=== PATIENT | male | born 1960 | race African-American/Black ===

== ENCOUNTER 2016-09-24 06:36 | Emergency (ER) | payer OTHER ==
[2016-09-24 07:10] VITALS: BP 155/87; PULSE 75; TEMP 98.7; BMI 33.7
[2016-09-24] MEDS ORDERED: DIPHTH,PERTUSS(ACELL),TET VAC 0.5 ML VIAL IM ONE (07:39)
[2016-09-24] MEDS ORDERED: ACETAMINOPHEN 500 MG TABLET (FP) PO ONE (07:39)
[2016-09-24] MEDS ORDERED: ACETAMINOPHEN 325 MG TABLET (FP) ONE (07:43)
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
== END 2016-09-24 08:02 | disposition home or self-care (01) ==
LOC: JER 06:36
PROC: 0HQFXZZ Repair Right Hand Skin, External Approach (ICD-10-PCS; principal; 2016-09-24)
PROC: 3E0234Z Introduction of Serum, Toxoid and Vaccine into Muscle, Percutaneous Approach (ICD-10-PCS; 2016-09-24)
DX: S61.312A Laceration without foreign body of right middle finger with damage to nail, initial encounter (principal); W45.8XXA Other foreign body or object entering through skin, initial encounter; Y93.89 Activity, other specified; Y92.9 Unspecified place or not applicable; I10 Essential (primary) hypertension
CPT/HCPCS: 99281-25

== ENCOUNTER 2017-12-14 18:10 | Emergency (ER) | payer OTHER ==
[2017-12-14 19:03] VITALS: BP 139/77; PULSE 78; TEMP 97.9; BMI 33.0
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
[2017-12-14 19:22] LABS: BASO % 0.7 % (0-2.0); EOS % 3.8 % (0-4.5); HEMATOCRIT 42.4 % (35.4-49); HEMOGLOBIN 14.3 GM/dL (11.7-16.9); LYMPH % 39.1 % (8-40); MCH 28.8 pg (25.7-33.7); MCHC 33.7 g/dl (32.0-35.9); MEAN CELL VOLUME 85.5 fl (80-96); MEAN PLT VOLUME 7.4 fl (7.5-11.1); MONO % 11.3 % (3.8-10.2); NEUT % 45.1 % (42.8-82.8); PLATELET COUNT 322 K/MM3 (134-434); RBC 4.96 M/mm3 (4.00-5.60); RDW 13.6 % (11.9-15.9); WHITE BLOOD COUNT 5.8 K/mm3 (4.0-10.0)
[2017-12-14 19:50] LABS: ANION GAP 6 (8-16); BILIRUBIN,TOTAL 0.5 mg/dL (0.2-1.0); BLOOD UREA NITROGEN 14 mg/dL (7-18); CALCIUM 9.4 mg/dL (8.5-10.1); CHLORIDE 105 mmol/L (98-107); CO2 29 mmol/L (21-32); CREATININE 1.1 mg/dL (0.7-1.3); GLUCOSE,RANDOM 99 mg/dL (74-106); POTASSIUM 3.4 mmol/L (3.5-5.1); SGOT/AST 22 U/L (15-37); SGPT/ALT 34 U/L (12-78); SODIUM 140 mmol/L (136-145)
[2017-12-14 19:51] LABS: ALK PHOS 65 U/L (45-117)
[2017-12-16 06:07] LABS: HBsAG SCREEN Negative (Negative); HEPATITIS B CORE ANTIBODY Negative (Negative)
== END 2017-12-14 21:17 | disposition home or self-care (01) ==
LOC: JER 18:10
DX: Z77.21 Contact with and (suspected) exposure to potentially hazardous body fluids (principal); X58.XXXA Exposure to other specified factors, initial encounter; Y93.89 Activity, other specified; Y92.811 Bus as the place of occurrence of the external cause; Y99.0 Civilian activity done for income or pay
CPT/HCPCS: 36415; 80053; 85025; 86704; 87340; 87389; 99281-25

== ENCOUNTER 2018-01-28 23:16 | Emergency (ER) | payer OTHER ==
[2018-01-28 23:58] VITALS: BP 158/77; PULSE 70; BMI 33.0
[2018-01-29] MEDS ORDERED: KETOROLAC TROMETHAMINE 30 MG/1 ML VIAL IM ONE (00:52)
--- NOTE | 2018-01-29 00:52 | PDOC ---
History of Present Illness - General Chief Complaint: Pain, Acute Stated Complaint: PAIN ACUTE Time Seen by Provider: 01/28/18 23:58 History Source: Patient Exam Limitations: No Limitations - History of Present Illness Initial Comments: 01/29/18 00:44 57-year-old male with past medical history of lower back pain and hypertension who presents emergency Department with right lower back pain radiating to his right pelvic area. Patient states she's been taking muscle relaxers and pain relievers for the past week for his back pain which has been helping. We will this morning and had his current pain he did not take his medication. Currently rates the pain 9/10 and describes as a sharp pain. Patient states the pain worsens with flexion and extension of his spine. He also reports mild relief after passing flatus. He denies fevers, chills, hematuria, dysuria, rectal bleeding, nausea, vomiting, diarrhea. Past History - Past Medical History Allergies/Adverse Reactions: Allergies Allergy/AdvReac Type Severity Reaction Status Date / Time shellfish derived Allergy Verified 01/28/18 23:51 Home Medications: Ambulatory Orders Hydrochlorothiazide [Hctz -] 25 mg PO DAILY 09/24/16 Methocarbamol [Robaxin -] 1,500 mg PO Q8H #12 tablet 01/29/18 COPD: No HTN: Yes - Immunization History Immunization Up to Date: No - Suicide/Smoking/Psychosocial Hx Smoking Status: No Smoking History: Unknown if ever smoked Have you smoked in the past 12 months: No Number of Cigarettes Smoked Daily: 0 Hx Alcohol Use: No Drug/Substance Use Hx: No Substance Use Type: None Review of Systems - Review of Systems Able to Perform ROS?: Yes Is the patient limited Greek proficient: No Constitutional: No: Symptoms Reported HEENTM: No: Symptoms Reported Respiratory: No: Symptoms reported Cardiac (ROS): No: Symptoms Reported ABD/GI: Yes: See HPI : No: Symptoms Reported Musculoskeletal: Yes: See HPI Integumentary: No: Symptoms Reported Neurological: No: Symptoms reported *Physical Exam - Vital Signs Last Vital Signs Temp Pulse Resp BP Pulse Ox 70 20 158/77 99 01/28/18 23:56 01/28/18 23:56 01/28/18 23:56 01/28/18 23:56 - Physical Exam General Appearance: Yes: Appropriately Dressed. No: Apparent Distress HEENT: positive: Normal ENT Inspection Neck: positive: Trachea midline, Supple Respiratory/Chest: positive: Lungs Clear, Normal Breath Sounds. negative: Respiratory Distress, Accessory Muscle Use Cardiovascular: positive: Regular Rhythm, Regular Rate. negative: Murmur Gastrointestinal/Abdominal: positive: Normal Bowel Sounds, Soft. negative: Tender Musculoskeletal: positive: Normal Inspection. negative: CVA Tenderness, Vertebral Tenderness Extremity: positive: Normal Inspection Integumentary: positive: Normal Color, Dry, Warm Neurologic: positive: Alert, Normal Response Medical Decision Making - Medical Decision Making 01/29/18 00:47 A/P: 57-year-old male with history of hypertension and lower back pain presents today with lower back pain radiating to his right lower abdomen Abdomen soft nontender nondistended. No CVA tenderness No palpable muscle spasms in the lower back Able to perform straight leg raises without difficulty UA Toradol 01/29/18 04:35 Urinalysis is unremarkable. Patient unable to ambulate secondary to pain at this time. I will give the patient a dose of Valium and reassess 01/29/18 06:05 Pain is now tolerable after receiving both Toradol and Valium. I will discharge the patient home with a note for work. I discussed the physical exam findings, ancillary test results and final diagnoses with the patient. I answered all of the patient's questions. The patient was satisfied with the care received and felt comfortable with the discharge plan and treatment plan. The patient will call his doctor within 96 hours to arrange follow-up and will return to the Emergency Department with any new, persistent or worsening symptoms. *DC/Admit/Observation/Transfer Diagnosis at time of Disposition: Lower back pain Qualifiers: Chronicity: acute Back pain laterality: bilateral Sciatica presence: without sciatica Qualified Code(s): M54.5 - Low back pain - Discharge Dispostion Disposition: HOME Condition at time of disposition: Fair Decision to Admit order: No - Prescriptions Prescriptions: Methocarbamol [Robaxin -] 1,500 mg PO Q8H #12 tablet - Referrals Referrals: Donnie Fuller [Non Staff, Medical] - - Patient Instructions Printed Discharge Instructions: DI for Low Back Pain Additional Instructions: Take Tylenol or Motrin as needed for pain. Follow manufacturers instructions for appropriate dosage. Try not to walk or bear weight as much as possible for the next 3 days. Warm moist heat applied to your back may help alleviate pain. Return to emergency department for discoloration of the foot, numbness or tingling to the foot, worsening pain, or any other concerns. Thank you very much for choosing us to provide your emergent healthcare needs. - Post Discharge Activity Forms/Work/School Notes: Back to Work
[2018-01-29] MEDS ORDERED: KETOROLAC TROMETHAMINE 30 MG/1 ML VIAL ONE (01:26)
--- NOTE | 2018-01-29 04:01 | PDOC ---
*Physical Exam - Vital Signs Last Vital Signs Temp Pulse Resp BP Pulse Ox 70 20 158/77 99 01/28/18 23:56 01/28/18 23:56 01/28/18 23:56 01/28/18 23:56 ED Treatment Course - Medications Given in the ED: ED Medications Discontinued Medications Generic Name Dose Route Start Last Admin Trade Name Stuart PRN Reason Stop Dose Admin Ketorolac Tromethamine 30 mg 01/29/18 00:52 01/29/18 01:34 Toradol Injection - IM 01/29/18 00:53 30 mg ONCE ONE Administration Medical Decision Making - Medical Decision Making 01/29/18 04:01 agree with care from ORALIA Gonzales *DC/Admit/Observation/Transfer Diagnosis at time of Disposition: Lower back pain - Discharge Dispostion Disposition: HOME Condition at time of disposition: Fair - Prescriptions Prescriptions: Methocarbamol [Robaxin -] 1,500 mg PO Q8H #12 tablet - Referrals Referrals: Donnie Fuller [Non Staff, Medical] - - Patient Instructions Printed Discharge Instructions: DI for Low Back Pain Additional Instructions: Take Tylenol or Motrin as needed for pain. Follow manufacturers instructions for appropriate dosage. Try not to walk or bear weight as much as possible for the next 3 days. Warm moist heat applied to your back may help alleviate pain. Return to emergency department for discoloration of the foot, numbness or tingling to the foot, worsening pain, or any other concerns. Thank you very much for choosing us to provide your emergent healthcare needs. - Post Discharge Activity Forms/Work/School Notes: Back to Work
[2018-01-29 04:07] LABS: URINE APPEARANCE CLEAR; URINE BILIRUBIN NEGATIVE (<2.0 mg/dL); URINE COLOR LTYELLOW; URINE GLUCOSE (UA) NEGATIVE (NEGATIVE); URINE KETONE NEGATIVE (NEGATIVE); URINE LEUK ESTERASE NEGATIVE (NEGATIVE); URINE NITRITE NEGATIVE (NEGATIVE); URINE PROTEIN NEGATIVE (NEGATIVE); URINE UROBILINOGEN NEGATIVE mg/dL (0.2-1.0)
[2018-01-29] MEDS ORDERED: diazePAM 5 MG TABLET PO ONE (04:36)
[2018-01-29] MEDS ORDERED: diazePAM 5 MG TABLET ONE (04:50)
== END 2018-01-29 06:31 | disposition home or self-care (01) ==
LOC: JER 23:16
PROC: 3E0233Z Introduction of Anti-inflammatory into Muscle, Percutaneous Approach (ICD-10-PCS; principal; 2018-01-28)
DX: M54.5 Low back pain (principal); I10 Essential (primary) hypertension
CPT/HCPCS: 81003; 99281-25